=== PATIENT | female | born 2005 | race Two or more races ===

== ENCOUNTER → 2024-12-13 | Outpatient (CLI) | payer OTHER, SELFPAY ==
--- NOTE | 2024-12-13 16:55 | XR_ITS ---
Examination: Knee, left , 3 views Technique: Knee AP, lateral, oblique 3 views Date and time of exam: December 13, 2024 1719 hrs. Indications: Left knee pain beginning one year ago. Findings: Normal bone density. Fracture or dislocation. No significant arthritic change. Impression: No fracture or arthritic change
== END | disposition home or self-care (01) ==
LOC: CDIM 16:50
PROVIDERS: PCP Family Medicine; Referring Provider Registered Nurse; Visit Provider Registered Nurse
DX: M25.562 Pain in left knee (principal)
CPT/HCPCS: 73562